=== PATIENT | male | born 1970 | race Caucasian/White ===

== ENCOUNTER 2019-05-01 07:52 | Day surgery (SDC) | payer OTHER ==
[~2019-05-01] VITALS: Ht 177.8 cm; Wt 68.0 kg
[2019-05-01 08:31] VITALS: BP 154/76
[2019-05-01 11:44] VITALS: BP 114/62
== END 2019-05-01 11:15 | disposition home or self-care (01) ==
LOC: GI 07:52 → OR 11:00 → GI 11:00
DX: K31.89 Other diseases of stomach and duodenum (principal); K52.9 Noninfective gastroenteritis and colitis, unspecified; E11.9 Type 2 diabetes mellitus without complications; K90.0 Celiac disease; F41.9 Anxiety disorder, unspecified; I10 Essential (primary) hypertension; Z79.899 Other long term (current) drug therapy; Z79.84 Long term (current) use of oral hypoglycemic drugs
CPT/HCPCS: 43235; G0500; J1200; J1610; J2250; J2310; J3010; J3490